=== PATIENT | female | born 1955 | race American Indian/Alaskan Native ===

== ENCOUNTER 2021-09-27 14:50 | Outpatient (CLI) | payer MEDICARE ==
--- NOTE | 2021-09-27 16:33 | XRay Report ---
LUMBAR SPINE 3 VIEWS INDICATION / CLINICAL INFORMATION: BACK PAIN; pain radiating down both legs. COMPARISON: None available. FINDINGS: VERTEBRAE: No acute fracture. Grade 1 anterolisthesis L4-5 and grade 1 retrolisthesis L5-S1. DISC SPACES / FACET JOINTS:Moderate multilevel degenerative changes, most prominent at the L4-5 and L 5-S1 levels. PARASPINAL SOFT TISSUES:No significant abnormality. ADDITIONAL FINDINGS: None. Signer Name: Romario Matos MD Signed: 09/27/2021 4:29 PM Workstation Name: [email or web address]
== END 2021-09-27 14:51 | disposition home or self-care (01) ==
LOC: XRAY 14:50
PROVIDERS: ATTEND Internal Medicine
DX: M47.817 Spondylosis without myelopathy or radiculopathy, lumbosacral region (principal); M54.40 Lumbago with sciatica, unspecified side; M43.17 Spondylolisthesis, lumbosacral region
CPT/HCPCS: 72100

== ENCOUNTER 2021-12-27 11:55 | Outpatient (CLI) | payer MEDICARE ==
--- NOTE | 2021-12-27 14:01 | XRay Report ---
RIGHT SHOULDER 3 VIEWS INDICATION: RIGHT SHOULDER PAIN. COMPARISON: None. IMPRESSION: No acute osseous or soft tissue abnormality. Mild acromioclavicular osteoarthritis is noted. BILATERAL KNEES 3 VIEWS INDICATION: Bilateral knee pain. COMPARISON: None. IMPRESSION: There are mild osteoarthritic changes in the medial and patellofemoral compartments in t he right knee. There are moderate to severe osteoarthritic changes in all 3 compartments of the left knee. The medial compartment is most affected. No acute osseous abnormality or bone lesion is identi fied. Signer Name: Farhat Persaud Jr, MD Signed: 12/27/2021 1:57 PM Workstation Name: [id number]
== END 2021-12-27 11:56 | disposition home or self-care (01) ==
LOC: XRAY 11:55
PROVIDERS: ATTEND Internal Medicine
DX: M17.0 Bilateral primary osteoarthritis of knee (principal); M17.11 Unilateral primary osteoarthritis, right knee

== ENCOUNTER 2022-04-19 12:00 | Outpatient (CLI) | payer MEDICARE ==
--- NOTE | 2022-04-19 14:05 | XRay Report ---
RIGHT SHOULDER 3 VIEWS INDICATION / CLINICAL INFORMATION: RIGHT SHOULDER PAIN. COMPARISON: None available. FINDINGS: BONES / JOINT(S): There are mild degenerative changes involving the acromioclavicular joint. There is no evidence of acute fracture, subluxation or destructive lesion. SOFT TISSUES: There is a tiny calcification along the superior margin of the humeral head. ADDITIONAL FINDINGS: The visualized right lung is clear. IMPRESSION: 1. Mild degenerative changes involving the acromioclavicular joint. 2. Tiny calcification along the superior margin of the humeral head may be related to calcific tendin opathy. Signer Name: Andriy Garcia MD Signed: 04/19/2022 2:01 PM Workstation Name: [id number]
== END 2022-04-19 12:01 | disposition home or self-care (01) ==
LOC: XRAY 12:00
PROVIDERS: ATTEND Internal Medicine
DX: M19.011 Primary osteoarthritis, right shoulder (principal)